=== PATIENT | female | born 1980 | race Caucasian/White ===

== ENCOUNTER → 2020-07-15 | Outpatient (CLI) | payer OTHER ==
[2020-07-15 14:03] LABS: INTERNATIONAL RATION (INR) 0.92; PROTHROMBIN TIME 12.6 SEC (11.4-15.4)
[2020-07-15 14:04] LABS: PARTIAL THROMBOPLASTIN TIME 33.2 SEC (23.5-35.8)
== END ==
LOC: OD 12:37
PROVIDERS: ATTEND Nurse Practitioner Primary Care
DX: N93.0 Postcoital and contact bleeding (principal)
CPT/HCPCS: 36415; 85610; 85730